=== PATIENT | male | born 1965 ===

== ENCOUNTER 2017-01-04 23:07 | Observation (INO) | payer MEDICAID ==
[2017-01-04 23:08] VITALS: BMI 27.8
[2017-01-04 23:59] VITALS: TEMP 99
--- NOTE | 2017-01-05 00:06 | ED PDOC ---
Arrival/HPI - General Historian: Patient, EMS <Lang Ardon - Last Filed: 01/05/17 01:54> <Mele Helm - Last Filed: 01/05/17 05:56> - General Chief Complaint: Substance Abuse Time Seen by Provider: 01/05/17 00:04 - History of Present Illness Narrative History of Present Illness (Text): 01/05/17 00:04 51 y/o male, pmh including htn, psychiatric history including psychotic disorder /polysubstance abuse, nkda, bib for substance abuse in the public. Pt is in the ER, stated that he has no discomfort or medical/psychological complaints, awake but not coherent, gets agitated on and off, sister came to visit the patient in the ER and left, providing limited information, no chest pain or shortness of breath, no fall or trauma, no pelvic or abdominal pain, no leg or arm pain, no other medical or psychological complaint. (Lang Ardon) Past Medical History - Provider Review Nursing Documentation Reviewed: Yes - Past History Past History: No Previous - Infectious Disease Hx of Infectious Diseases: None - Tetanus Immunization Tetanus Immunization: Unknown - Cardiac Hx Hypertension: Yes - Pulmonary Hx Respiratory Disorders: No - Neurological Hx Neurological Disorder: No - HEENT Hx HEENT Disorder: No - Renal Hx Renal Disorder: No - Endocrine/Metabolic Hx Endocrine Disorders: No - Hematological/Oncological Hx Hepatitis C: Yes - Integumentary Hx Dermatological Disorder: No - Musculoskeletal/Rheumatological Hx Musculoskeletal Disorders: No Hx Falls: No - Gastrointestinal Hx Gastrointestinal Disorders: No - Genitourinary/Gynecological Hx Genitourinary Disorders: No - Psychiatric Hx Anxiety: Yes Hx Emotional Abuse: No Hx Physical Abuse: No Hx Substance Use: No - Surgical History Hx Cholecystectomy: Yes Other/Comment: lung - Anesthesia Hx Anesthesia: No - Suicidal Assessment Feels Threatened In Home Enviroment: No <Lang Ardon - Last Filed: 01/05/17 01:54> Family/Social History - Physician Review Nursing Documentation Reviewed: Yes Family/Social History: Unknown Family HX Smoking Status: Current Some Days Smoker Hx Alcohol Use: Yes (social beer) Hx Substance Use: No Substance used: used herion 1 week ago Hx Substance Use Treatment: No <Lang Ardon - Last Filed: 01/05/17 01:54> Allergies/Home Meds <Lang Ardon - Last Filed: 01/05/17 01:54> <Mele Helm - Last Filed: 01/05/17 05:56> Allergies/Adverse Reactions: Allergies No Known Allergies Allergy (Verified 10/13/16 06:32) Review of Systems - Review of Systems Systems not reviewed;Unavailable: Intoxicated <Lang Ardon - Last Filed: 01/05/17 01:54> Physical Exam Vital Signs Reviewed: Yes Temperature: Afebrile Blood Pressure: Hypertensive Pulse: Regular Respiratory Rate: Normal Appearance: Positive for: Well-Appearing, Non-Toxic, Comfortable Pain Distress: None Mental Status: Positive for: Alert and Oriented X 3 - Systems Exam Head: Present: Atraumatic, Normocephalic Pupils: Present: PERRL Extroacular Muscles: Present: EOMI Conjunctiva: Present: Normal Mouth: Present: Moist Mucous Membranes Neck: Present: Normal Range of Motion Respiratory/Chest: Present: Clear to Auscultation, Good Air Exchange. No: Respiratory Distress, Accessory Muscle Use Cardiovascular: Present: Regular Rate and Rhythm, Normal S1, S2. No: Murmurs Abdomen: Present: Normal Bowel Sounds. No: Tenderness, Distention, Peritoneal Signs Back: Present: Normal Inspection Upper Extremity: Present: Normal Inspection. No: Cyanosis, Edema Lower Extremity: Present: Normal Inspection. No: Edema Neurological: Present: Motor Func Grossly Intact, Other (unsteady gait, awake but not coherent) Skin: Present: Warm, Dry, Normal Color. No: Rashes Psychiatric: Present: Alert <Lang Ardon - Last Filed: 01/05/17 01:54> Vital Signs Temp Pulse Resp BP Pulse Ox 01/04/17 23:58 99 F 95 H 20 158/82 H 97 Medical Decision Making <Lang Ardon - Last Filed: 01/05/17 01:54> <Mele Helm - Last Filed: 01/05/17 05:56> ED Course and Treatment: 01/05/17 00:05 -labs/ua/uds/alcohol -chest xray -ekg -observe and reassess 01/05/17 01:54 -Pending labs and radiology studies. -Case sign out to the ER attending Dr. Helm for follow up. (Lang Ardon) - Lab Interpretations Lab Results: 01/05/17 01:25 01/05/17 01:25 Lab Results 01/05/17 04:35: Urine Opiates Screen Positive H, Urine Methadone Screen Positive H, Ur Barbiturates Screen Negative, Ur Phencyclidine Scrn Positive H, Ur Amphetamines Screen Negative, U Benzodiazepines Scrn Positive H, U Oth Cocaine Metabols Negative, U Cannabinoids Screen Negative 01/05/17 01:25: WBC 6.6, RBC 4.67, Hgb 13.8 L, Hct 41.8 L, MCV 89.5, MCH 29.6, MCHC 33.0, RDW 14.3, Plt Count 211, MPV 9.9, Gran % 63.7, Lymph % (Auto) 21.6 L , [place] % (Auto) 10.9 H, Eos % (Auto) 3.5, Baso % (Auto) 0.3, Gran # 4.21, Lymph # 1.4, [place] # 0.7 H, Eos # 0.2, Baso # 0.02, Sodium 141, Potassium 5.1 H, Chloride 98, Carbon Dioxide 33, Anion Gap 15, BUN 27 H, Creatinine 1.0, Est GFR ( Amer) > 60, Est GFR (Non-Af Amer) > 60, Random Glucose 89, Calcium 9.7 , Total Bilirubin 0.4, AST 39, ALT 44, Alkaline Phosphatase 87, Total Protein 8.4 H, Albumin 4.4, Globulin 4.0, Albumin/Globulin Ratio 1.1, Salicylates < 1 L , Acetaminophen < 10.0 L, Alcohol, Quantitative < 10 - RAD Interpretation Radiology Orders: 01/05/17 00:51 HEAD W/O CONTRAST [CT] Stat CHEST PORTABLE [RAD] Stat ED OBSERVATION Date of observation admission: 01/05/17 Time of observation admission: 00:47 <Lang Ardon - Last Filed: 01/05/17 01:54> Discharge: Yes <Mele Helm - Last Filed: 01/05/17 05:56> - Observation admission statement Patient is being placed in observation because:: substance abuse (Lang Ardon) - Goals of Observation Goals of observation are:: sober (Lang Ardon) - Progress Note Progress Note: 01/05/17 00:47 -will monitor until sober (Lang Ardon) 01/05/17 02:00 Pt resting comfortably, no new complaints. 01/05/17 04:00 Pt resting comfortably, no new complaints. 01/05/17 05:49 Pt awake, alert, and sober. Pt admits to recreational drug use. Denies any SI/ HI. Pt strongly advised to refrain from drug use in the future. (Mele Helm) - PA / SOLUTION ENGINEER / Resident Statement HERRERA has reviewed & agrees with the documentation as recorded. <Lang Ardon - Last Filed: 01/05/17 01:54> - PA / SOLUTION ENGINEER / Resident Statement / has reviewed & agrees with the documentation as recorded. / has examined the patient and agrees with the treatment plan. <Mele Helm - Last Filed: 01/05/17 05:56> Disposition/Present on Arrival - Present on Arrival Any Indicators Present on Arrival: No History of DVT/PE: No History of Uncontrolled Diabetes: No Urinary Catheter: No History of Decub. Ulcer: No History Surgical Site Infection Following: None - Disposition Have Diagnosis and Disposition been Completed?: Yes Disposition Time: 00:47 <Lang Ardon - Last Filed: 01/05/17 01:54> - Present on Arrival Any Indicators Present on Arrival: No - Disposition Have Diagnosis and Disposition been Completed?: Yes Disposition Time: 05:55 Patient Plan: Discharge <Mele Helm - Last Filed: 01/05/17 05:56> - Disposition Diagnosis: Polysubstance abuse Disposition: HOME/ ROUTINE Condition: GOOD Discharge Instructions (ExitCare): Polysubstance Abuse (ED) Additional Instructions: Refrain from future drug use/follow up [facility] Referrals: [facility] [Outside] - Follow up with primary
[2017-01-05 01:34] LABS: ADD MANUAL DIFF? NO
[2017-01-05 01:40] LABS: BASO # 0.02 K/mm3 (0.0-2.0); BASO % 0.3 % (0.0-3.0); EOS # 0.2 (0.0-0.7); EOS % 3.5 % (1.5-5.0); GRAN # 4.21 (1.4-6.5); GRAN % 63.7 % (50.0-68.0); HEMATOCRIT 41.8 % (42.0-52.0); LYMPH # 1.4 (1.2-3.4); LYMPH % 21.6 % (22.0-35.0); MEAN CELL VOLUME 89.5 fL (80.0-105.0); MEAN CORPUSCULAR HEMOGLOBIN 29.6 pg (25.0-35.0); MEAN PLATELET VOLUME 9.9 fl (7.0-11.0); MONO # 0.7 (0.1-0.6); MONO % 10.9 % (1.0-6.0); PLATELET COUNT 211 10^3/uL (120.0-450.0); RED CELL DISTRIBUTION WIDTH 14.3 % (11.5-14.5); WHITE BLOOD COUNT 6.6 10^3/ul (4.5-11.0)
[2017-01-05 02:11] LABS: ALB/GLOB RATIO 1.1 (1.1-1.8); ALKALINE PHOSPHATASE 87 U/L (38-133); ALT/SGPT 44 U/L (7-56); AST/SGOT 39 U/L (15-59); BILIRUBIN,TOTAL 0.4 mg/dL (0.2-1.3); BLOOD UREA NITROGEN 27 mg/dL (7-21); CALCIUM 9.7 mg/dL (8.4-10.5); CARBON DIOXIDE 33 mmol/L (21-33); CHLORIDE 98 mmol/L (95-110); GFR AFRICAN-AMERICAN > 60; GLUCOSE,RANDOM 89 mg/dL (70-110); POTASSIUM 5.1 mmol/L (3.6-5.0); SODIUM 141 mmol/L (132-148); TOTAL PROTEIN 8.4 g/dL (5.8-8.3)
--- NOTE | 2017-01-05 04:28 | CT ---
EXAM: CT Head Without Intravenous Contrast CLINICAL HISTORY: 51 years old, male; Signs and symptoms; Alteration of consciousness; Transient alteration of awareness; Additional info: Change of behavior, head bleed? TECHNIQUE: Axial computed tomography images of the head/brain without intravenous contrast. This CT exam was performed using one or more of the following dose reduction techniques: automated exposure control, adjustment of the mA and/or kV according to patient size, and/or use of iterative reconstruction technique. COMPARISON: No relevant prior studies available. FINDINGS: Brain: Minimal atrophy. No intracranial hemorrhage. No mass. No definite edema. Ventricles: No hydrocephalus. Bones/joints: No acute fracture. Soft tissues: Unremarkable. Sinuses: Scattered minimal mucosal thickening. Mastoid air cells: No mastoid effusion. Orbits: Unremarkable as visualized. IMPRESSION: 1. No intracranial hemorrhage. 2. Incidental/non-acute findings are described above.
[2017-01-05 06:06] VITALS: BP 146/83; PULSE 84; RESP 16; O2SAT 99
--- NOTE | 2017-01-05 07:19 | RAD ---
HISTORY: medical clearance COMPARISON: 11/14/2012 at 7:55 a.m. FINDINGS: LUNGS: No active pulmonary disease. Lung volumes are slightly less than before ; this is relieved to explain the mild crowded infrahilar bronchovascular marking appearance. PLEURA: No significant pleural effusion identified, no pneumothorax apparent. CARDIOVASCULAR: Top-normal Tortuous thoracic aorta OSSEOUS STRUCTURES: Mild thoracic spondylosis. Acromioclavicular joint arthrosis VISUALIZED UPPER ABDOMEN: Normal. OTHER FINDINGS: None. IMPRESSION: No active / acute disease suspect.
--- NOTE | 2017-01-05 16:48 | CARD ---
APPROVED REPORT EKG Measurement Heart [id number] <Conclusion> Normal sinus rhythm Normal ECG
== END 2017-01-05 05:53 | disposition home or self-care (01) ==
LOC: ED 23:07 → EROBSV 01-05 00:47
PROVIDERS: ADMIT Emergency Medicine; ATTEND Emergency Medicine
DX: F19.10 Other psychoactive substance abuse, uncomplicated (principal); I10 Essential (primary) hypertension
CPT/HCPCS: 70450; 71010; 80053; 80320; 80324; 80329; 80345; 80346; 80349; 80353; 80358; 80361; 83992; 85025; 93005; 99283; G0378

== ENCOUNTER 2017-05-27 21:01 | Emergency (ER) | payer MEDICAID ==
[2017-05-27 21:01] VITALS: BMI 27.8
[2017-05-27 21:12] VITALS: TEMP 98.9
--- NOTE | 2017-05-27 21:18 | ED PDOC ---
Arrival/HPI - General Chief Complaint: ENT Problem Time Seen by Provider: 05/27/17 21:07 Historian: Patient, Parent - History of Present Illness Time/Duration: Other (1 month) Symptom Onset: Gradual Symptom Course: Worsening Quality: Aching Severity Level: Moderate Activities at Onset: Rest Associated Symptoms (Text): 05/27/17 21:15 Approximately one month history of bilateral earache right worse than left. No cough congestion or URI. No headache. No chest pain palpitations or dyspnea. No nausea vomiting. No hearing difficulty. No fever or chills. He ran out of his blood pressure medication approximately 8 months ago. Past Medical History - Past History Past History: No Previous - Infectious Disease Hx of Infectious Diseases: None - Tetanus Immunization Tetanus Immunization: Unknown - Cardiac Hx Hypertension: Yes - Pulmonary Hx Respiratory Disorders: No - Neurological Hx Neurological Disorder: No - HEENT Hx HEENT Disorder: No - Renal Hx Renal Disorder: No - Endocrine/Metabolic Hx Endocrine Disorders: No - Integumentary Hx Dermatological Disorder: No - Musculoskeletal/Rheumatological Hx Musculoskeletal Disorders: No Hx Falls: No - Gastrointestinal Hx Gastrointestinal Disorders: No - Genitourinary/Gynecological Hx Genitourinary Disorders: No - Psychiatric Hx Anxiety: Yes Hx Depression: Yes Hx Substance Use: Yes - Surgical History Hx Cholecystectomy: Yes - Anesthesia Hx Anesthesia: No - Suicidal Assessment Feels Threatened In Home Enviroment: No Family/Social History - Physician Review Nursing Documentation Reviewed: Yes Family/Social History: Unknown Family HX Smoking Status: Current Some Days Smoker Hx Alcohol Use: Yes (social beer) Hx Substance Use: Yes Substance used: used herion 1 week ago Hx Substance Use Treatment: No Allergies/Home Meds Allergies/Adverse Reactions: Allergies No Known Allergies Allergy (Verified 10/13/16 06:32) Home Medications: Home Meds Medication Instructions Recorded Confirmed QUEtiapine [SEROquel] 200 mg PO HS 05/27/17 05/27/17 amLODIPine [Norvasc] 10 mg PO DAILY 05/27/17 05/27/17 Review of Systems - Physician Review All systems were reviewed & negative as marked: Yes - Review of Systems Constitutional: Normal ENT: absent: Hearing Changes, Sore Throat Respiratory: Normal Cardiovascular: Normal Gastrointestinal: Normal Neurological: Normal Physical Exam Vital Signs Temp Pulse Resp BP Pulse Ox 05/27/17 21:04 98.9 F 62 18 190/127 H 97 Temperature: Afebrile Blood Pressure: Hypertensive Pulse: Regular Respiratory Rate: Normal Appearance: Positive for: Well-Appearing, Non-Toxic, Comfortable Pain Distress: None Mental Status: Positive for: Alert and Oriented X 3 - Systems Exam Head: Present: Atraumatic, Normocephalic Pupils: Present: PERRL Extroacular Muscles: Present: EOMI Conjunctiva: Present: Normal Ears: Present: Erythema, Normal Canal, TM Bulging, Fluid. No: TM Perf Mouth: Present: Moist Mucous Membranes Pharnyx: No: ERYTHEMA, EXUDATE, TONSILS ENLARGED Neck: Present: Normal Range of Motion Respiratory/Chest: Present: Clear to Auscultation, Good Air Exchange. No: Respiratory Distress, Accessory Muscle Use Cardiovascular: Present: Regular Rate and Rhythm, Normal S1, S2. No: Murmurs Medical Decision Making ED Course and Treatment: 05/27/17 21:17 Prescription for patient's amlodipine will be given. Follow-up in the clinic. Follow up in ER as needed. Bilateral otitis media treated with Augmentin. Disposition/Present on Arrival - Present on Arrival Any Indicators Present on Arrival: No History of DVT/PE: No History of Uncontrolled Diabetes: No Urinary Catheter: No History of Decub. Ulcer: No History Surgical Site Infection Following: None - Disposition Have Diagnosis and Disposition been Completed?: Yes Diagnosis: Otitis media, Hypertension Disposition: HOME/ ROUTINE Disposition Time: 21:18 Patient Plan: Discharge Condition: GOOD Discharge Instructions (ExitCare): Otitis Media (ED), Hypertension (ED) Additional Instructions: Follow-up in the clinic. Follow-up in the ER as needed. Prescriptions: Amoxicillin/Clavulanate [Augmentin 875 MG-125 MG] 1 tab PO Q12 #20 tab amLODIPine [Norvasc] 10 mg PO DAILY #10 tab Referrals: [facility] [Outside] - Follow up with primary Forms: [employer] ([employer]ami)
[2017-05-27 21:27] VITALS: BP 176/88; PULSE 66; RESP 16; O2SAT 98
== END 2017-05-27 21:39 | disposition home or self-care (01) ==
LOC: ED 21:01
DX: H66.93 Otitis media, unspecified, bilateral (principal); F17.210 Nicotine dependence, cigarettes, uncomplicated